=== PATIENT | female | born 1965 | race Caucasian/White ===

== ENCOUNTER 2018-06-21 07:06 | Day surgery (SDC) | payer OTHER ==
[~2018-06-21] VITALS: Ht 160 cm; Wt 64.9 kg
[2018-06-21] MEDS ORDERED: LIDOCAINE/EPI 1% 1:100000 20 ML VIAL INJ ONE (09:55)
[2018-06-21] MEDS ORDERED: EPINEPHrine 1 MG/ML AMP INFIL ONE (09:55)
[2018-06-21] MEDS ORDERED: OXYMETAZOLINE HCL 0.05% NASAL SPRAY NS ONE (09:55)
[2018-06-21] MEDS ORDERED: ONDANSETRON HCL 4 MG/2 ML VIAL IVP PRN (10:45)
[2018-06-21] MEDS ORDERED: fentaNYL CITRATE/PF 100 MCG/2 ML AMP IVP PRN ×2 (10:45)
[2018-06-21] MEDS ORDERED: DEXAMETHASONE SOD PHOSPHATE 4 MG/ML VIAL ONE (11:45)
[2018-06-21] MEDS ORDERED: fentaNYL CITRATE/PF 100 MCG/2 ML AMP ONE ×2 (11:45→12:21)
[2018-06-21] MEDS ORDERED: ONDANSETRON HCL 4 MG/2 ML VIAL ONE (11:45)
[2018-06-21] MEDS ORDERED: MIDAZOLAM HCL 5 MG/ML VIAL (VERSED) IV ONE (11:45)
[2018-06-21] MEDS ORDERED: SEVOFLURANE 15 MIN GAS INH ONE (11:45)
[2018-06-21] MEDS ORDERED: PHENYLEPHRINE HCL 10 MG/ML VIAL (NEOSYNEPHRINE) ONE (11:45)
[2018-06-21] MEDS ORDERED: GLYCOPYRROLATE 0.2 MG/ML VIAL ONE (11:45)
[2018-06-21] MEDS ORDERED: PROPOFOL 200MG/ 20ML VIAL (DIPRIVAN) IV ONE (11:45)
[2018-06-21] MEDS ORDERED: NS 250 ML IV.SOLN IV ONE (11:45)
[2018-06-21] MEDS ORDERED: ROCURONIUM BROMIDE 10 MG/ML (ZEMURON) ONE (11:45)
[2018-06-21] MEDS ORDERED: NEOSTIGMINE METHYLSULFATE 1 MG/ML, 10 ML VIAL ONE (11:45)
[2018-06-21] MEDS ORDERED: LR 1,000 ML IV.SOLN IV ONE (11:45)
[2018-06-21] MEDS ORDERED: NS IRRIG SOLN 1000 ML IR ONE (11:45)
[2018-06-21] MEDS ORDERED: METOCLOPRAMIDE HCL 10 MG/2 ML VIAL IVP ONE (12:00)
[2018-06-21] MEDS ORDERED: METOCLOPRAMIDE HCL 10 MG/2 ML VIAL ONE (12:04)
[2018-06-21] MEDS ORDERED: PROMETHAZINE HCL 25 MG/ML AMP IM PRN (13:30)
[2018-06-21] MEDS ORDERED: PROMETHAZINE HCL 25 MG/ML AMP ONE (13:40)
[2018-06-21] MEDS ORDERED: HYDROcodone/ACETAMIN 5-325 MG TAB (NORCO/ VICODIN) PO ONE (14:45)
[2018-06-21 17:22] VITALS: BP_SYST 113
== END 2018-06-21 16:05 | disposition home or self-care (01) ==
LOC: SDS 07:06 → SMU 07:06 → SDS 16:05
PROVIDERS: ATTEND Otolaryngology
DX: J34.2 Deviated nasal septum (principal); J34.89 Other specified disorders of nose and nasal sinuses; Z83.3 Family history of diabetes mellitus; Z80.9 Family history of malignant neoplasm, unspecified; J32.9 Chronic sinusitis, unspecified
CPT/HCPCS: 30140; 30520; 31255; 31267; 31296; 31297; 88305; 88311; J0171; J1100; J2250; J2370; J2405; J2550; J2704; J2710; J2765; J3010; J3490; J7050; J7120; 88304